=== PATIENT | male | born 1950 | race Caucasian/White ===

== ENCOUNTER 2019-10-27 11:24 | Emergency (ER) | payer OTHER ==
[~2019-10-27] VITALS: Ht 170.2 cm; Wt 70.3 kg
[2019-10-27 11:26] VITALS: BP_SYST 200
--- NOTE | 2019-10-27 11:32 | NUR ---
Patient to ER bed 2 to gown for evaluation. Side rails up. Report given to MARÍA Urban.
--- NOTE | 2019-10-27 11:35 | NUR ---
Patient brought in by ambulance d/t increased confusion and aggressiveness to both patients and staff. No apparent injury noted. Patient is alert and oriented x2, responsive to verbal stimuli, respirations even and unlabored, ambulating with a steady gait. VSS, denied any pain at this time. Informed of the wait time. Instructed to notify ED staff for any changes in condition or worsening of symptoms.
[2019-10-27] MEDS ORDERED: NACL 0.9% 1,000 ML IV ONE (11:36)
--- NOTE | 2019-10-27 11:44 | NUR ---
Patient refusing blood draw. aware.
--- NOTE | 2019-10-27 11:48 | NUR ---
Patient refusing IV and NS. aware.
--- NOTE | 2019-10-27 12:44 | NUR ---
Pt A&Ox3, pt refusing IV and EKG at this time, notified.
--- NOTE | 2019-10-27 14:02 | NUR ---
ER at bedside examining patient.
--- NOTE | 2019-10-27 14:10 | NUR ---
ANGELA Art at bedside convincing patient to have his blood drawn.
--- NOTE | 2019-10-27 14:19 | NUR ---
hearing aid repair technician at bedside drawing blood specimen. Patient tolerated the procedure well.
[2019-10-27 14:28] LABS: BASOPHILS % (AUTO) 0.6 % (0.0-2.0); EOSINOPHILS # (AUTO) 0.1 K/uL (0.0-0.4); HEMATOCRIT 43.7 % (36-54); HEMOGLOBIN 14.5 g/dL (14.0-18.0); LYMPHOCYTES # (AUTO) 1.2 K/uL (1.0-5.5); LYMPHOCYTES % (AUTO) 22.1 % (20.5-51.5); MEAN CORPUSCULAR HEMOGLOBIN 32 pg (27-31); MEAN CORPUSCULAR HGB CONC 33 % (32-36); MEAN CORPUSCULAR VOLUME 96 fL (79.0-98.0); MONOCYTES # (AUTO) 0.6 K/uL (0.0-1.0); MONOCYTES % (AUTO) 11.4 % (1.7-9.3); NEUTROPHILS # (AUTO) 3.4 K/uL (1.8-7.7); NEUTROPHILS % (AUTO) 63.9 % (40.0-70.0); PLATELET COUNT (AUTO) 198 K/uL (130-430); RED BLOOD CELL COUNT(AUTO) 4.55 MIL/uL (4.2-6.2); RED CELL DISTRIBUTION WIDTH 13.4 % (9.0-15.0); WHITE BLOOD COUNT (AUTO) 5.3 K/uL (4.8-10.8)
[2019-10-27 14:50] LABS: ANION GAP 4 (5-15); CALCIUM 8.9 mg/dL (8.4-11.0); CHLORIDE 109 mmol/L (98-107); CREATININE 0.95 mg/dL (0.55-1.30); GLUCOSE 109 mg/dL (70-99); POTASSIUM 4.9 mmol/L (3.5-5.1); SODIUM SERUM 145 mmol/L (136-145); UREA NITROGEN, BLOOD 15 mg/dL (8-21)
--- NOTE | 2019-10-27 14:50 | NUR ---
Patient continues to refuse EKG. MD Art made aware.
[2019-10-27 14:53] LABS: GFR AFRICAN AMERICAN 101 mL/min (>90)
[2019-10-27 14:55] LABS: ALANINE AMINOTRANSFERASE 20 U/L (12-78); ALBUMIN 3.7 g/dL (3.4-4.8); AMYLASE 32 U/L (0-100); ASPARTATE AMINOTRANSFERASE 18 U/L (10-37); CHOLESTEROL 214 mg/dL (<200); HDL CHOLESTEROL 76 mg/dL (>45); LDL CHOLESTEROL 130 mg/dL (<100); LIPASE 131 U/L (73-393); PROTHROMBIN TIME 10.2 SECS (9.5-12.5); TOTAL BILIRUBIN 1.3 mg/dL (0.0-1.0); TRIGLYCERIDES 52 mg/dL (30-150)
[2019-10-27 14:58] LABS: ALCOHOL, BLOOD < 3 mg/dL (<10)
--- NOTE | 2019-10-27 16:52 | NUR ---
Spoke with Anoop of [facility] at [phone]. He stated that the patient is not allowed to go back there tonight. Reminded him that they cannot do that, caregiver stated he will call the world renowned chef and restaurant owner and speak with them then will call us back.
--- NOTE | 2019-10-27 17:58 | NUR ---
Administered Clonidine PO as ordered by Dr. Art. Patient tolerated the medication well.
[2019-10-27] MEDS ORDERED: cloNIDine HCL 0.1 MG TABLET PO ONE ×2 (18:00→18:30)
[2019-10-27] MEDS ORDERED: LORazepam 2 MG/ML VIAL IM ONE (18:30)
--- NOTE | 2019-10-27 19:15 | NUR ---
Spoke with Jocelynn, snf owners daughter. She will be arriving to pick patient up and take him to another facility. Estimated ETA 10 mins per Jocelynn. Call back number if needed is [phone]
--- NOTE | 2019-10-27 19:33 | NUR ---
Patient given written and verbal discharge instructions and verbalizes understanding. ER MD discussed with patient the results and treatment provided. Patient in stable condition. ID arm band removed. No Rx given. Patient educated on pain management and to follow up with PMD. Pain Scale 0/10. Opportunity for questions provided and answered. Medication side effect fact sheet provided.
[2019-10-27 19:34] VITALS: BP_SYST 157
== END 2019-10-27 19:34 ==
LOC: SED 11:24
DX: Z04.6 Encounter for general psychiatric examination, requested by authority (principal)
CPT/HCPCS: 36415; 80053; 80061; 82150; 82550; 83036; 83690; 84484; 85025; 85610; 85730; 96372; 99283; G0482; J2060